=== PATIENT | male | born 1985 ===

== ENCOUNTER 2023-12-12 19:47 | Emergency (ER) | payer OTHER ==
[~2023-12-12] VITALS: Ht 160 cm; Wt 94.3 kg
[2023-12-12 19:53] VITALS: BP_SYST 127; PULSE 113; RESP 20; TEMP 98.2; O2SAT 97
[2023-12-12 20:13] VITALS: BP_SYST 127; PULSE 113; RESP 20; TEMP 98.2; O2SAT 97
== END 2023-12-12 20:10 | disposition left against medical advice (07) ==
LOC: SED 19:47
DX: M25.561 Pain in right knee (principal)
CPT/HCPCS: 99281